=== PATIENT | male | born 1995 | race American Indian/Alaskan Native ===

== ENCOUNTER 2021-06-28 13:26 | Emergency (ER) | payer SELFPAY ==
[2021-06-28] MEDS ORDERED: LIDOCAINE-MPF (1%) 10 MG/1 ML VIAL 5 ML INFILTRATI ONE (14:52)
--- NOTE | 2021-06-28 15:02 | Emergency Department Report ---
ED Male HPI - General Chief complaint: Urogenital-Male Stated complaint: ABDOMINAL PAIN/DICHARGE Time Seen by Provider: 06/28/21 14:50 Source: patient Mode of arrival: Ambulatory Limitations: No Limitations - History of Present Illness Initial comments: Patient is a 26-year-old male presents emergency room with complaints of penile discharge that began a couple days ago. He states he also began having some lower abdominal pain. Patient denies any dysuria, hematuria, urinary tension, pain or swelling in the testicles, fever, vomiting. Patient states he was last sexually active 1 month ago without protection. PMHx HIV. Adverse reaction to amoxicillin. - Related Data Previous Rx's Medication Instructions Recorded Last Taken Type Doxycycline Hyclate [Doxycycline 100 mg PO BID 7 Days #14 tab 06/28/21 Unknown Rx Hyclate TAB] Allergies Allergy/AdvReac Type Severity Reaction Status Date / Time amoxicillin Allergy Diarrhea Verified 06/28/21 14:47 ED Review of Systems ROS: Stated complaint: ABDOMINAL PAIN/DICHARGE Other details as noted in HPI Comment: All other systems reviewed and negative ED Past Medical Hx - Past Medical History Additional medical history: HIV - Surgical History Past Surgical History?: No - Medications Home Medications: Home Medications Medication Instructions Recorded Confirmed Last Taken Type Doxycycline Hyclate [Doxycycline 100 mg PO BID 7 Days #14 tab 06/28/21 Unknown Rx Hyclate TAB] ED Physical Exam - General Limitations: No Limitations General appearance: alert, in no apparent distress - Head Head exam: Present: atraumatic, normocephalic - Eye Eye exam: Present: normal appearance - ENT ENT exam: Present: mucous membranes moist - GI/Abdominal GI/Abdominal exam: Present: soft. Absent: distended, tenderness, guarding, rebound, rigid - exam: Present: other (accounting/finance tutor: aureliano, JEREMI, no scrotal edema, no testicular ttp, no lesions to the penis or scrotum, no erythema, no increased warmth, normal testicular lie, normal cremasteric reflex) - Neurological Exam Neurological exam: Present: alert, oriented X3 - Psychiatric Psychiatric exam: Present: normal affect, normal mood - Skin Skin exam: Present: warm, dry, intact ED Course Vital Signs 06/28/21 06/28/21 14:43 15:37 Temperature 97.6 F 97.7 F Pulse Rate 73 76 Respiratory 18 14 Rate Blood Pressure 134/93 Blood Pressure 127/79 [Left] O2 Sat by Pulse 100 99 Oximetry ED Medical Decision Making - Medical Decision Making Patient is a 26-year-old male presents emergency room with complaints of penile discharge that began a couple days ago. He states he also began having some lower abdominal pain. Patient denies any dysuria, hematuria, urinary tension, pain or swelling in the testicles, fever, vomiting. Patient states he was last sexually active 1 month ago without protection. PMHx HIV. Adverse reaction to amoxicillin. Vitals are normal. On exam:accounting/finance tutor: aureliano, EMT, no scrotal edema, no testicular ttp, no lesions to the penis or scrotum, no erythema, no increased warmth, normal testicular lie, normal cremasteric reflex. UA shows evidence of bacteria. Symptoms appear likely consistent with STD. He has no signs of orchitis or epididymitis at this time, no signs of testicular torsion. Patient given ceftriaxone IM on the emergency department and given prescription for doxycycline. Advised patient please take medication as prescribed. follow up with a clinic or health department for full STD panel. have any partner and tested and treated as well. avoid sexual intercourse. return to the emergency room for any new or worsening symptoms. Critical care attestation.: If time is entered above; I have spent that time in minutes in the direct care of this critically ill patient, excluding procedure time. ED Disposition Clinical Impression: Penile discharge Abdominal pain Qualifiers: Abdominal location: unspecified location Qualified Code(s): R10.9 - Unspecified abdominal pain Disposition: 01 HOME / SELF CARE / HOMELESS Is pt being admited?: No Does the pt Need Aspirin: No Condition: Stable Instructions: Safe Sex Additional Instructions: please take medication as prescribed. follow up with a clinic or health department for full STD panel. have any partner and tested and treated as well. avoid sexual intercourse. return to the emergency room for any new or worsening symptoms. [facility] Address: [address] [place] [address], [place] [address] Prescriptions: Doxycycline Hyclate [Doxycycline Hyclate TAB] 100 mg PO BID 7 Days #14 tab Referrals: [facility] [Outside] - 2-3 Days Time of Disposition: 15:00 Print Language: CITIZEN OF [place]
[2021-06-28 15:19] LABS: Bacteria,Urine 1+ /HPF (Negative); Bilirubin,Urine NEG (Negative); Blood,Urine NEG (Negative); Color,Urine Yellow (Yellow); Mucus,Urine 2+ /HPF
[2021-06-28 15:41] VITALS: BP 127/79
== END 2021-06-28 15:54 | disposition home or self-care (01) ==
LOC: ED 13:26
DX: R36.9 Urethral discharge, unspecified (principal); R10.9 Unspecified abdominal pain; Z79.899 Other long term (current) drug therapy; Z88.1 Allergy status to other antibiotic agents
CPT/HCPCS: 81001; 87086; 96372; 99283; J0696

== ENCOUNTER 2021-10-13 09:49 | Emergency (ER) | payer SELFPAY ==
[2021-10-13 10:26] VITALS: BP 117/70
== END 2021-10-13 10:30 | disposition left against medical advice (07) ==
LOC: ED 09:49
DX: R60.9 Edema, unspecified (principal); Z53.21 Procedure and treatment not carried out due to patient leaving prior to being seen by health care provider

== ENCOUNTER 2021-10-13 22:19 | Emergency (ER) | payer SELFPAY ==
[2021-10-13] MEDS ORDERED: cephALEXin 500 MG CAP PO ONE (22:54)
[2021-10-13] MEDS ORDERED: LIDOCAINE-MPF (1%) 10 MG/1 ML VIAL 5 ML INFILTRATI ONE (22:54)
[2021-10-13] MEDS ORDERED: traMADol 50 MG TAB PO ONE (22:55)
--- NOTE | 2021-10-13 23:00 | Emergency Department Report ---
ED General Adult HPI - General Chief complaint: Extremity Problem,Nontraumatic Stated complaint: RIGHT THUMB SWOLLEN/PAIN Time Seen by Provider: 10/13/21 22:54 Source: patient Mode of arrival: Ambulatory Limitations: No Limitations - History of Present Illness Initial comments: Patient 26-year-old male who presents for right thumb pain and swelling with erythema x2 days. Patient does endorse being a nail biter. Patient denies fall injury or trauma. Pain is described as 7/10 aching and throbbing. Pain is relieved by nothing tried pain is exacerbated by type palpation and movement. Patient denies other complaint. - Related Data Previous Rx's Medication Instructions Recorded Last Taken Type Doxycycline Hyclate [Doxycycline 100 mg PO BID 7 Days #14 tab 06/28/21 Unknown Rx Hyclate TAB] cephALEXin [Keflex] 500 mg PO Q8HR 7 Days #21 cap 10/13/21 Unknown Rx traMADoL [Ultram] 50 mg PO Q6HR PRN #12 tablet 10/13/21 Unknown Rx Allergies Allergy/AdvReac Type Severity Reaction Status Date / Time amoxicillin Allergy Diarrhea Verified 10/13/21 22:22 ED Review of Systems ROS: Stated complaint: RIGHT THUMB SWOLLEN/PAIN Other details as noted in HPI Constitutional: denies: chills, fever Eyes: denies: eye pain, eye discharge, vision change ENT: denies: ear pain, throat pain Respiratory: denies: cough, shortness of breath, wheezing Cardiovascular: denies: chest pain, palpitations Endocrine: no symptoms reported Gastrointestinal: denies: abdominal pain, nausea, diarrhea Genitourinary: denies: urgency, dysuria Musculoskeletal: denies: back pain, joint swelling, arthralgia Skin: other (Thumb pain swelling and erythema) Neurological: denies: headache, weakness, paresthesias Psychiatric: denies: anxiety, depression Hematological/Lymphatic: denies: easy bleeding, easy bruising ED Past Medical Hx - Past Medical History Additional medical history: HIV - Medications Home Medications: Home Medications Medication Instructions Recorded Confirmed Last Taken Type Doxycycline Hyclate [Doxycycline 100 mg PO BID 7 Days #14 tab 06/28/21 Unknown Rx Hyclate TAB] cephALEXin [Keflex] 500 mg PO Q8HR 7 Days #21 cap 10/13/21 Unknown Rx traMADoL [Ultram] 50 mg PO Q6HR PRN #12 tablet 10/13/21 Unknown Rx ED Physical Exam - General Limitations: No Limitations General appearance: alert, in no apparent distress - Head Head exam: Present: atraumatic, normocephalic - Eye Eye exam: Present: normal appearance, EOMI Pupils: Present: normal accommodation - ENT ENT exam: Present: mucous membranes moist - Neck Neck exam: Present: normal inspection, full ROM. Absent: tenderness - Respiratory Respiratory exam: Present: normal lung sounds bilaterally. Absent: respiratory distress - Cardiovascular Cardiovascular Exam: Present: regular rate, normal rhythm, normal heart sounds. Absent: systolic murmur, diastolic murmur, rubs, gallop - GI/Abdominal GI/Abdominal exam: Present: soft, normal bowel sounds - Rectal Rectal exam: Present: deferred - Extremities Exam Extremities exam: Present: full ROM - Expanded Upper Extremity Exam Right Hand Wrist exam: Present: full ROM, tenderness (Right thumb hip ), swelling, erythema. Absent: abrasion, laceration, deformity, crepidus, dislocation, nail avulsion, subungual hematoma Neuro motor exam: Present: wrist extension intact, thumb opposition intact, thumb IP flexion intact, thumb adduction intact, fingers 2-5 abduction intact Neurosensory exam: Present: radial nerve intact Vascular: Present: normal capillary refill - Back Exam Back exam: Present: normal inspection, full ROM. Absent: tenderness - Neurological Exam Neurological exam: Present: alert, oriented X3 - Psychiatric Psychiatric exam: Present: normal affect, normal mood - Skin Skin exam: Present: warm, dry, intact, normal color. Absent: rash ED Course Vital Signs 10/13/21 22:22 Temperature 98.9 F Pulse Rate 65 Respiratory 18 Rate Blood Pressure 138/78 O2 Sat by Pulse 100 Oximetry - I & D Right Finger Type of Procedure: Simple (Right thumb paronychia) Site: Right thumb Blade Size: 11 I & D Procedure: betadine prep, sterile drapes applied Progress: Right thumbnail paronychia anesthesia with 1% lidocaine via digital block digital block is achieved. Cleaned with Betadine solution, incision with 11 blade scalpel x1 and nailbed scant purulent bloody drainage. Site irrigated with 10 cc sterile saline, sterile dressing applied all bleeders controlled DRAPERY COUNSELOR remains less than 3 seconds range of motion is intact and unrestricted. Patient given wound care instructions verbalized understanding of same. Patient tolerated procedure with minimal distress. ED Medical Decision Making - Medical Decision Making Right thumb paronychia see procedure note pain and pressure is resolved. All bleeders controlled sterile dressings intact patient tolerated procedure with minimal distress. Patient given wound care instructions verbalized understanding of same. Patient DC'd home with prescriptions. Patient will follow up with In 2 days for wound check. Patient will return to emergency department should symptoms worsen. Patient DC'd in stable condition at this time. Critical care attestation.: If time is entered above; I have spent that time in minutes in the direct care of this critically ill patient, excluding procedure time. ED Disposition Clinical Impression: Paronychia of thumb, right Disposition: HOME / SELF CARE / HOMELESS Is pt being admited?: No Does the pt Need Aspirin: No Condition: Stable Instructions: Paronychia, Fingertip Infection Additional Instructions: Take medications as prescribed, wound care as directed. Follow-up with your doctor in 2 to 3 days Prescriptions: cephALEXin [Keflex] 500 mg PO Q8HR 7 Days #21 cap traMADoL [Ultram] 50 mg PO Q6HR PRN #12 tablet PRN Reason: Pain Referrals: VIJAY DANIELS MD [Staff Physician] - 3-5 Days Forms: Work/School Release Form(ED) Time of Disposition: 23:03
[2021-10-13 23:11] VITALS: BP 128/78
== END 2021-10-14 04:50 | disposition home or self-care (01) ==
LOC: ED 22:19
DX: L03.011 Cellulitis of right finger (principal)
CPT/HCPCS: 99282